=== PATIENT | male | born 1975 | race Caucasian/White ===

== ENCOUNTER 2018-04-08 14:27 | Emergency (ER) | payer BC ==
[2018-04-08 14:53] LABS: #Basophils 0.1 thou/uL (0.0-0.2); #Eosinphils 0.3 thou/uL (0.0-0.7); #Monocytes 1.6 thou/uL (0.11-0.59); #Neutrophils 14.2 thou/uL (1.40-6.50); %Basophils 0.4 % (0.0-1.0); %Eosinophils 1.3 % (0.0-10.0); %Lymphocytes 15.9 % (21.0-51.0); %Monocytes 8.3 % (0.0-10.0); %Neutrophils 74.1 % (42.0-75.0); Hemoglobin 17.7 g/dL (14.0-18.0); Mean Corpuscular HGB CONC 33.4 g/dL (32.0-36.0); Mean Corpuscular Volume 86.7 fL (78.0-98.0); Mean Platelet Volume 7.4 fL (7.4-10.4); Platelet Count 340 thou/uL (130-400); RBC Distribution Width 13.5 % (11.5-14.5); Red Blood Cell (RBC) Count 6.09 mill/uL (4.70-6.10); White Blood Cell (WBC) Count 19.1 thou/uL (4.8-10.8)
--- NOTE | 2018-04-08 15:01 | RAD ---
PA AND LATERAL CHEST: History: Syncope. Comparison: None. FINDINGS: There is mild cardiomegaly. Lungs are clear. There is focal eventration of the right hemidiaphragm. N o pleural effusion is evident. Surgical clips are seen within the right upper quadrant. No acute osse ous abnormality is noted. There is some physiologic wedging at T12. IMPRESSION: Mild cardiomegaly without evidence of cardiac decompensation. POS: [facility]
[2018-04-08 15:21] LABS: ALT (SGPT) 35 U/L (8-55); AST (SGOT) 29 U/L (5-34); Albumin 4.3 g/dL (3.5-5.0); Alkaline Phosphatase 110 U/L (40-150); Anion Gap 15 mmol/L (10-20); BUN (Urea Nitrogen) 7 mg/dL (8.9-20.6); Bilirubin, Total 0.7 mg/dL (0.2-1.2); CK (CPK) 316 U/L (30-200); Calc. Creatinine Clearance 0 mL/min (70-130); Calcium 8.8 mg/dL (7.8-10.44); Carbon Dioxide 24 mmol/L (22-29); Chloride 103 mmol/L (98-107); Estimated GFR-MDRD Greater than 90; Globulin 3.4 g/dL (2.4-3.5); Glucose 98 mg/dL (70-105); Potassium 3.7 mmol/L (3.5-5.1); Protein, Total 7.7 g/dL (6.0-8.3); Sodium 138 mmol/L (136-145)
[2018-04-08 15:22] LABS: CKMB 2.9 ng/mL (0-6.6); Troponin I Less than 0.010 ng/mL (< 0.028)
--- NOTE | 2018-04-08 16:00 | CT ---
CT BRAIN WITHOUT CONTRAST: Date: 04/08/18 HISTORY: Syncope. FINDINGS: No evidence of infarct, hemorrhage, midline shift, or abnormal extra-axial fluid collections are seen . The ventricular size is normal and the basilar cisterns are patent. The bony calvarium is intact. T he visualized paranasal sinuses and mastoid air cells are well aerated. There is a small scalp contus ion in the left posterior parietal region. IMPRESSION: No CT evidence of acute intracranial process. POS: [facility]
[2018-04-08] MEDS ORDERED: ISOVUE-370 76%-LOCM 1 ML ONE (16:47)
[2018-04-08 17:07] LABS: Acetaminophen Less than 6.0 mcg/mL (10.0-30.0); Alcohol Less than 10 mg/dL (Less than 10); Salicylate Less than 8.0 mg/dL (15.0-30.0)
--- NOTE | 2018-04-08 17:19 | CT ---
CT ANGIOGRAM CHEST WITH 3D RENDERIN04/08/18 HISTORY: 42-year-old male with history of syncopal episode. Elevated D-dimer. There is a 0.4 cm diameter subpleural nodule in the right mid lung zone. There is a small 0.3 cm diam eter circumscribed subpleural nodule in the left upper lobe. No convincing CT evidence for acute pulm onary embolism. The more distal branches are somewhat less than optimally imaged because of motion ar tifact and decreased bolus contrast density. Evidence for prior cholecystectomy. Fatty changes in the liver. No pleural effusion or pericardial effusion. No mediastinal mass or adenopathy. There is a 1.8 cm diameter nodule in the inferior left lobe of the thyroid with small calcific foci. IMPRESSION: No convincing CT evidence for acute pulmonary embolism. Less than 0.4 cm diameter bilateral subpleura l nodules, consider followup low dose CT screening scan in one year. 1.8 cm diameter left lower lobe thyroid nodule with several calcific foci. No evidence for other significant acute process. Code LN POS: [facility]
[2018-04-08] MEDS ORDERED: Acetaminophen 325 MG TAB ONE (17:32)
--- NOTE | 2018-04-09 07:17 | CT ---
CT CERVICAL SPINE WITH CORONAL AND SAGITTAL REFORMATIONS: 04/08/18 HISTORY: Trauma. Neck pain. FINDINGS/IMPRESSION: Mild degenerative changes are seen. There is loss of cervical lordosis. No acute fracture or subluxat ion is noted. No facet malalignment identified. POS: [facility]
== END 2018-04-08 17:44 | disposition home or self-care (01) ==
LOC: ERS 14:27
DX: R55 Syncope and collapse (principal); E11.9 Type 2 diabetes mellitus without complications; I10 Essential (primary) hypertension; E78.5 Hyperlipidemia, unspecified; F17.210 Nicotine dependence, cigarettes, uncomplicated; Z79.899 Other long term (current) drug therapy; Z71.6 Tobacco abuse counseling
CPT/HCPCS: 36415; 70450; 71046; 71275; 72125; 80053; 80307; 82140; 82553; 83690; 83880; 84146; 84443; 84484; 85025; 85379; 93005; 96360; 96361; 99406

== ENCOUNTER 2018-04-24 09:47 | Outpatient (CLI) | payer BC ==
--- NOTE | 2018-04-28 08:58 | EEG ---
Referring Physician: Jaimie LACEY EEG # [id number] TEST TYPE: ROUTINE OUTPATIENT REPORT: AN EEG USING THE INTERNATIONAL TEN-TWENTY SYSTEM OF ELECTRODE PLACEMENT WAS PERFORMED. The waking background is a 9 hertz alpha frequency. The patient became drowsy, but no sleep was seen. Hyperventilation and photic stimulation were unremarkable. No epileptiform features were present. IMPRESSION: THIS IS A NORMAL AWAKE AND DROWSY EEG. Oncology Account Specialist: LITZY Java Developer: EEG.JOLENE KINNEY
== END 2018-04-24 09:48 | disposition home or self-care (01) ==
LOC: EEG 09:47
PROVIDERS: ATTEND Family Medicine
DX: R55 Syncope and collapse (principal)
CPT/HCPCS: 95816

== ENCOUNTER 2018-04-30 16:59 | Observation (INO) | payer BC ==
[2018-04-30 18:15] LABS: #Basophils 0.1 thou/uL (0.0-0.2); #Eosinphils 0.3 thou/uL (0.0-0.7); #Monocytes 1.1 thou/uL (0.11-0.59); #Neutrophils 11.2 thou/uL (1.40-6.50); %Basophils 0.7 % (0.0-1.0); %Eosinophils 1.7 % (0.0-10.0); %Lymphocytes 19.1 % (21.0-51.0); %Monocytes 7.2 % (0.0-10.0); %Neutrophils 71.4 % (42.0-75.0); Hemoglobin 16.7 g/dL (14.0-18.0); Mean Corpuscular HGB CONC 33.1 g/dL (32.0-36.0); Mean Corpuscular Hemoglobin 28.6 pg (27.0-31.0); Mean Corpuscular Volume 86.3 fL (78.0-98.0); Mean Platelet Volume 7.3 fL (7.4-10.4); Platelet Count 282 thou/uL (130-400); RBC Distribution Width 13.5 % (11.5-14.5); Red Blood Cell (RBC) Count 5.85 mill/uL (4.70-6.10); White Blood Cell (WBC) Count 15.7 thou/uL (4.8-10.8)
[2018-04-30 18:35] LABS: ALT (SGPT) 25 U/L (8-55); AST (SGOT) 21 U/L (5-34); Albumin 3.8 g/dL (3.5-5.0); Alkaline Phosphatase 163 U/L (40-150); Anion Gap 14 mmol/L (10-20); BUN (Urea Nitrogen) 6 mg/dL (8.9-20.6); Bilirubin, Total 0.6 mg/dL (0.2-1.2); Calc. Creatinine Clearance 0 mL/min (70-130); Calcium 8.8 mg/dL (7.8-10.44); Carbon Dioxide 21 mmol/L (22-29); Chloride 103 mmol/L (98-107); Estimated GFR-MDRD Greater than 90; Globulin 3.3 g/dL (2.4-3.5); Glucose 103 mg/dL (70-105); Potassium 3.6 mmol/L (3.5-5.1); Protein, Total 7.1 g/dL (6.0-8.3); Sodium 134 mmol/L (136-145)
--- NOTE | 2018-04-30 18:36 | CT ---
CT BRAIN WITHOUT CONTRAST: 04/30/18 HISTORY: New onset seizure. COMPARISON: CT brain 04/08/18. FINDINGS: No acute hemorrhage or infarct. No midline shift or mass effect. Ventricular size and extra-axial CSF spaces are normal. The paranasal sinuses and mastoids are clear. Calvarium is intact. IMPRESSION: No acute intracranial abnormality. No significant change. POS: [facility]
[2018-04-30] MEDS ORDERED: levETIRAcetam In NaCl (Iso-Os) 1,000 MG in Premix Bag 1 BAG IVPB SCH (18:45)
[2018-04-30] MEDS ORDERED: Acetaminophen 325 MG TAB PO PRN ×2 (21:37→22:55)
[2018-04-30] MEDS ORDERED: Ketorolac Tromethamine 30 MG/ML VIAL ONE (21:55)
[2018-04-30] MEDS ORDERED: Ondansetron PF 4 MG/2 ML Vial IVP PRN (22:55)
[2018-04-30] MEDS ORDERED: Ondansetron ODT 4 MG TAB SL PRN (22:55)
[2018-05-01 00:16] VITALS: BMI 44.2
--- NOTE | 2018-05-01 04:18 | HP ---
CHIEF COMPLAINT: Possible seizure. HISTORY: This patient is a 42-year-old male, who presented via the emergency department. The patient reports that he had been diagnosed with diabetes mellitus about 4 months ago and has been started on Bydureon. States his blood sugars have actually been running pretty well overall. He is not aware of having any significant hypoglycemic events. The patient developed headaches about 1 month ago that seemed to be bitemporal and frontal in nature. These last 10 to 30 minutes and then tend to spontaneously resolve. The patient had an episode 3 weeks ago, which was 1 week after the onset of his headaches, where he had a syncopal episode. The patient was seen in the emergency department at that time. He was evaluated and released. He had a normal prolactin level at that time, although there was some concern about the possibility of a seizure. The patient subsequently had an outpatient EEG performed, which was unremarkable. Today, the patient presented back to the emergency department with another episode. The patient had been working this morning. He went to take shower, went into the bathroom, locked the door. Then, his father heard him yell. He went to check on the patient, but the door was locked. They finally were able to kick in the door and found the patient lying down on the ground. He was shaking and drooling, and his eyes were rolled back in his head. He was apparently out for about 10 minutes. He had some spontaneous recovery and was able to stand up and get to a bed and lie down 2 minutes before the paramedics arrived. The patient does not remember any of these events. He did not have loss of bowel or bladder function. He says his tongue is sore and his low back is sore (has a history of low back surgery) and he is little bit sore in his right leg, but otherwise feels like he is completely back to normal at this time. REVIEW OF SYSTEMS: All systems were reviewed and negative except for the positives and negatives noted in the history of present illness. Additional specifics, the patient has had no evidence of illness. No fevers or chills. PAST MEDICAL HISTORY: Notable for the diabetes mellitus type 2 diagnosed 4 months ago and started on the Bydureon. He also has hypertension and was recently started on losartan. 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 He reports he was getting Decadron and Rocephin shots for those in the past, but has not had any in about 8 months. Hyperlipidemia. The patient had traumatic injury to the back of his head, when he fell and caused a large laceration to his posterior scalp. The patient reports that he was hospitalized for 12 days related to that incident, but never had any loss of consciousness. SURGICAL HISTORY: Lumbar spine surgery and tonsillectomy. FAMILY HISTORY: Mother had TIAs and coronary artery disease. Father is healthy. SOCIAL HISTORY: The patient smokes half a pack of cigarettes per day. Denies any significant alcohol use or drugs. He is . He is full code. His surrogate decision maker would be his father or his . ALLERGIES: BACTRIM, WHICH APPARENTLY JUST CAUSES WORSENING OF THE DARIER DISEASE SKIN CONDITION. MEDICATIONS: 1. Atorvastatin 10 mg at bedtime. 2. Bydureon 2 mg subcu once a week. 3. Losartan-hydrochlorothiazide 100-12.5 one p.o. daily. PHYSICAL EXAMINATION: VITAL SIGNS: Blood pressure 105/60, pulse 71, respirations 18, and O2 saturation 96% on room air. GENERAL APPEARANCE: Morbidly obese, age-appropriate male. He is in no distress. He was asleep, but easily awaken and appropriate. HEENT: PERRL. No OP lesions. The patient has small oropharyngeal airway with large tongue. NECK: Extremely large and difficult to assess further. HEART: Regular rate and rhythm without murmurs, gallops, or rubs. LUNGS: Notable for very minimal scattered bilateral rales with fair air exchange. ABDOMEN: Obese, soft, nontender, and nondistended. Positive bowel sounds. No masses. No organomegaly. EXTREMITIES: No cyanosis, clubbing, or edema. There is slight tenderness to palpation in the right calf, but no visible contusions, lesions, or palpable cords or erythema. LABORATORY DATA: White count 15.7, hemoglobin 16.7, and platelets 282. Sodium 134, potassium 3.6, chloride 103, CO2 of 21, BUN 6, creatinine 0.79, glucose 107, calcium 8.8, AST 21, ALT 25, and alkaline phosphatase 163. Troponin 0.014. Albumin is 3.8 and prolactin is low at 3.18. CT brain is negative. EKG shows normal sinus rhythm at 70 beats per minute. IMPRESSION AND PLAN: 1. Syncopal episode. The patient has now had a second episode, where he has essentially lost consciousness. Today, he was noted to be shaking and drooling, and his eyes rolled back in his head, but it does not sound like there was clear evidence of true tonoclonic type activity. The patient had a normal EEG and has had negative prolactin levels x2. Certainly possible that the patient may be having some seizure. He does have a history of head injury when he was 17 years old, where he fell backwards and hit the back of his head causing significant gash. He reports he was in the hospital for 12 days related to that episode, but had no loss of consciousness at that time. The patient also has recently been started on 2 new medications, including the Bydureon for the diabetes and the losartan for blood pressure. It is possible that he could be having some reaction to these medications. He has some headaches, which started about a week before the first episode as well, which is a known side effect of the Bydureon. The patient has been loaded with Keppra in the emergency department. We will keep him overnight on telemetry, get an MRI of the brain and a Cardiology consult. We will also get an echocardiogram. 2. Diabetes mellitus concerning that his new medication maybe contributory to his current symptomatology. We will hold that. For now, we will just get Accu-Cheks and not give any sliding scale as hypoglycemia cannot completely be ruled out in this setting either. May need to institute some sliding scale, but I suspect in the long run, we would need to consider an alternative medication for his diabetes. 3. Hypertension. Continue with the losartan-hydrochlorothiazide. 4. Hyperlipidemia. Continue with the statin. Job ID: [id number]
[2018-05-01 09:05] LABS: #Basophils 0.1 thou/uL (0.0-0.2); #Eosinphils 0.3 thou/uL (0.0-0.7); #Monocytes 1.1 thou/uL (0.11-0.59); #Neutrophils 7.7 thou/uL (1.40-6.50); %Basophils 0.8 % (0.0-1.0); %Eosinophils 2.7 % (0.0-10.0); %Lymphocytes 24.8 % (21.0-51.0); %Monocytes 8.8 % (0.0-10.0); %Neutrophils 62.9 % (42.0-75.0); Hemoglobin 15.6 g/dL (14.0-18.0); Mean Corpuscular HGB CONC 33.1 g/dL (32.0-36.0); Mean Corpuscular Hemoglobin 28.4 pg (27.0-31.0); Mean Platelet Volume 7.3 fL (7.4-10.4); Platelet Count 260 thou/uL (130-400); RBC Distribution Width 13.4 % (11.5-14.5); White Blood Cell (WBC) Count 12.2 thou/uL (4.8-10.8)
[2018-05-01 09:29] LABS: ALT (SGPT) 25 U/L (8-55); AST (SGOT) 21 U/L (5-34); Albumin 3.8 g/dL (3.5-5.0); Alkaline Phosphatase 153 U/L (40-150); Anion Gap 12 mmol/L (10-20); BUN (Urea Nitrogen) 11 mg/dL (8.9-20.6); Bilirubin, Total 0.4 mg/dL (0.2-1.2); Calc. Creatinine Clearance 215 mL/min (70-130); Calcium 8.6 mg/dL (7.8-10.44); Carbon Dioxide 27 mmol/L (22-29); Chloride 103 mmol/L (98-107); Estimated GFR-MDRD 89; Globulin 3.1 g/dL (2.4-3.5); Glucose 130 mg/dL (70-105); Potassium 3.4 mmol/L (3.5-5.1); Protein, Total 6.9 g/dL (6.0-8.3); Sodium 139 mmol/L (136-145)
--- NOTE | 2018-05-01 11:54 | MRI ---
MRI BRAIN WITHOUT CONTRAST: HISTORY: New-onset seizure. FINDINGS: Correlation is made with the CT scan of the previous day. No restricted diffusion is seen. No infarct, hemorrhage, midline shift, or abnormal extraaxial fluid collections are noted. The ventricular size is normal and the basilar cisterns are patent. No sign al abnormalities are noted on the highly sensitive FLAIR images. A partially empty sella is seen. IMPRESSION: No acute process. POS: [facility]
--- NOTE | 2018-05-01 13:15 | PDOC.PN ---
- Subjective Encounter Start Date: 05/01/18 Encounter Start Time: 10:30 Subjective: denies any current neuro symptoms -: Reports acute on chronic low back pain from episode/fall yesterday -: Denies numb/tingling to LE, denies changes to bladder/bowel - Objective Resuscitation Status - Order Detail: 04/30/18 21:37 Resuscitation Status Routine Resuscitation Status: FULL: Full Resuscitation Discussed with: patient Vital Signs & Weight: Vital Signs (12 hours) Temp Pulse Resp BP Pulse Ox 05/01/18 11:47 98.0 F 62 16 137/91 H 96 05/01/18 08:00 98.1 F 69 16 116/63 96 05/01/18 04:00 98.0 F 72 16 134/80 95 Weight Weight 148.098 kg Result Diagrams: 05/01/18 08:58 05/01/18 08:58 Additional Labs: Accuchecks 05/01/18 05/01/18 10:48 06:00 POC Glucose 126 H 110 Phys Exam - Physical Examination HEENT: PERRLA, moist MMs Neck: no nodes Respiratory: no wheezing, clear to auscultation bilateral Cardiovascular: RRR, no significant murmur Gastrointestinal: soft, non-tender Musculoskeletal: no edema, pulses present tenderness to right lumbar paraspinal muscles, scars noted from previous sx Neurological: moves all 4 limbs Lymphatic: no nodes Psychiatric: normal affect, A&O x 3 Skin: normal turgor, cap refill <2 seconds Dx/Plan (1) Seizure Code(s): R56.9 - UNSPECIFIED CONVULSIONS Status: Acute (2) Diabetes Code(s): E11.9 - TYPE 2 DIABETES MELLITUS WITHOUT COMPLICATIONS Status: Acute (3) Hypertension Code(s): I10 - ESSENTIAL (PRIMARY) HYPERTENSION Status: Acute (4) Hyperlipidemia Code(s): E78.5 - HYPERLIPIDEMIA, UNSPECIFIED Status: Acute - Plan Brain MRI, Echo, Lumbar CT, Neuro consult -: Will continue to monitor vs/labs -: Will await neuro recommendations * .
--- NOTE | 2018-05-01 14:33 | CT ---
CT LUMBAR SPINE WITHOUT CONTRAST: Date: 05/01/18 HISTORY: Fall at home. Post-traumatic pain. Symptoms x3 weeks. COMPARISON: None. TECHNIQUE: Lumbar spine MRI is performed without intravenous Gadolinium administration. Multisequential, multipl sherif imaging is performed. FINDINGS: Symmetric attenuation of the psoas muscles and visualized solid organs. No retroperitoneal mass, lymphadenopathy, or hematoma. There are five lumbar-type vertebral bodies. Lumbar spine vertebral body height is maintained. There is no lumbar spine fracture. No spondylolisthesis. No spondylolysis. T11-T12: No significant central canal stenosis. Neural foramina are patent. T12-L1: No significant central canal stenosis. Foramina are patent. L1-L2: Generalized disc bulge with mild central canal stenosis. Patent neural foramina bilaterally. L2-L3: Generalized disc bulge with a central disc protrusion. Ligamentum flavum thickening and facet hypertrophy result in mild central canal stenosis. Mild bilateral foraminal narrowing. L3-L4: No significant loss of disc space height. Minimal central disc bulge. Minimal central canal s tenosis. Neural foramina are patent. L4-L5: Mild loss of disc space height. There appear to be posterior laminectomy defects. No high gra de central canal stenosis. Moderate to severe right and moderate left foraminal narrowing. L5-S1: No significant central canal stenosis. Foramina are patent. IMPRESSION: 1. Degenerative changes of the lumbar spine as above. 2. No evidence of lumbar spine fracture. POS: [facility]
[2018-05-01] MEDS: HYDROcodone/Acetaminophen 10/325 mg Tablet PO PRN (17:58)
--- NOTE | 2018-05-02 00:22 | CON ---
DATE OF CONSULTATION: 05/01/2018 TYPE OF CONSULTATION: Neurology. CONSULTING PHYSICIAN: Hospitalist service. IMPRESSION: Recurrent seizure without structural etiology. Possibly provoked by his heavy work schedule and lack of sleep. PLAN: 1. Keppra 500 mg twice a day. 2. Office followup. HISTORY OF PRESENT ILLNESS: Mr. Hanks is a 42-year-old man, who reports having recurrent seizure prior to admission. He apparently had one about two weeks ago. He was in the bathroom, yelling in incoherent manner, he does not recall doing this. When the door was opened by his father, they found him having a generalized tonic-clonic seizure. He has total amnesia of all the events. He reports that he works between 70 and 90 hours a week. He does not do any alcohol or drugs. His lab work was unremarkable on admission. His MRI of the brain is normal. He has no focal complaints. There is no other significant past history. ALLERGIES: SULFA. MEDICATIONS: 1. Atorvastatin. 2. Losartan. FAMILY HISTORY: Noncontributory. SOCIAL HISTORY: Unremarkable. REVIEW OF SYSTEMS: No complaints of lateralized weakness or numbness. PHYSICAL EXAMINATION: GENERAL: He is an overweight, middle-aged man, in no acute distress. VITAL SIGNS: Blood pressure 110/65, pulse 66, respirations 16, temperature 98.3. HEENT: Unremarkable. NECK: Supple. EXTREMITIES: No cyanosis. NEUROLOGIC: Alert and appropriate. His exam is nonfocal. No abnormal movements were seen. SUMMARY: Given the recurrent nature of his events, I will go ahead and start him on an anticonvulsant and follow up with him in the office. Job ID: [id number]
[2018-05-02] MEDS: HYDROcodone/Acetaminophen 10/325 mg Tablet PO PRN ×2 (02:22→11:01)
[2018-05-02 05:34] LABS: #Basophils 0.1 thou/uL (0.0-0.2); #Eosinphils 0.3 thou/uL (0.0-0.7); #Lymphocytes 3.4 thou/uL (1.20-3.40); #Neutrophils 7.6 thou/uL (1.40-6.50); %Basophils 0.8 % (0.0-1.0); %Eosinophils 2.7 % (0.0-10.0); %Lymphocytes 27.2 % (21.0-51.0); %Monocytes 8.2 % (0.0-10.0); %Neutrophils 61.1 % (42.0-75.0); Hemoglobin 15.4 g/dL (14.0-18.0); Mean Corpuscular HGB CONC 33.9 g/dL (32.0-36.0); Mean Corpuscular Hemoglobin 29.3 pg (27.0-31.0); Mean Corpuscular Volume 86.3 fL (78.0-98.0); Mean Platelet Volume 7.4 fL (7.4-10.4); Platelet Count 260 thou/uL (130-400); RBC Distribution Width 13.3 % (11.5-14.5); Red Blood Cell (RBC) Count 5.25 mill/uL (4.70-6.10); White Blood Cell (WBC) Count 12.5 thou/uL (4.8-10.8)
[2018-05-02 05:37] LABS: ALT (SGPT) 24 U/L (8-55); AST (SGOT) 23 U/L (5-34); Albumin 3.7 g/dL (3.5-5.0); Alkaline Phosphatase 136 U/L (40-150); Anion Gap 12 mmol/L (10-20); BUN (Urea Nitrogen) 11 mg/dL (8.9-20.6); Bilirubin, Total 0.4 mg/dL (0.2-1.2); Calc. Creatinine Clearance 235 mL/min (70-130); Calcium 8.4 mg/dL (7.8-10.44); Carbon Dioxide 25 mmol/L (22-29); Chloride 106 mmol/L (98-107); Estimated GFR-MDRD Greater than 90; Glucose 105 mg/dL (70-105); Potassium 3.4 mmol/L (3.5-5.1); Protein, Total 6.7 g/dL (6.0-8.3); Sodium 140 mmol/L (136-145)
[2018-05-02 07:47] VITALS: BP 125/69; TEMP 98
[2018-05-02] MEDS ORDERED: levETIRAcetam 500 MG TAB PO SCH (09:00)
--- NOTE | 2018-05-03 03:47 | DIS ---
DATE OF ADMISSION: 04/30/2018 DATE OF DISCHARGE: 05/02/2018 PRIMARY CARE PHYSICIAN: Dr. Mckeon. CONSULTANTS: Dr. aWre. PROCEDURES: 1. Brain CT showed no acute intracranial abnormality, no significant change. 2. Brain MRI, no acute process. 3. Lumbar spine CT. a. Degenerative changes to lumbar spine. b. No evidence of lumbar spine fracture. 4. Echocardiogram, ejection fraction is visually estimated at 50-55%. Left atrium is mildly dilated. Mild mitral regurgitation. Trace tricuspid regurgitation. HOSPITAL COURSE: Mr. Hanks is a 42-year-old male who presented to the emergency room on 04/30/2018 for a syncopal episode, possible seizure, headaches. The patient had been started on Bydureon about 4 months ago and since that time he has been having headaches and syncopal episodes. He had one 3 weeks ago and on day of admission. The patient reports he was working on the morning of admission, went to take a shower, went to the bathroom, locked the door. Father heard him yell, went to go check on him and the bathroom door was locked. Family was finally able to kick the door down and found the patient lying down on the ground. He was shaking and drooling and his eyes had rolled back in his head. Apparently out for about 10 minutes. Some spontaneous recovery and eventually was able to stand up and get to bed when he lay down 2 minutes before the Paramedics arrived. The patient does not remember any of these events. He did not have any loss of bowel or bladder function. Reports an exacerbation of his low back pain. Denies any loss of function. Based on symptoms, presentation, the patient was admitted to the observation unit for seizure activity. The patient had a brain CT and MRI, which were both negative. We asked Dr. Ware to consult. His impression was a recurrent seizure without structural etiology, possibly provoked by heavy work schedule and lack of sleep. His plan was to put him on Keppra 500 mg twice a day and would like to see him in the office as an outpatient. The patient denied any further seizure activity when he was hospitalized; did report some continued exacerbation of his low back pain. We performed a CT scan of his lumbar spine, which was negative for acute process. White blood cell count was initially 15.7 and on the day of discharge, it dropped to 12.5. Vital signs and laboratory results remained stable. The patient is requesting to go home. Case discussed with Dr. Ware, who agreed with plan and he was sent home to follow up with Dr. Ware and Dr. Mckeon on an outpatient basis. We started Keppra and restarted his home medications. We did discontinue the Bydureon and added metformin. DISCHARGE DIAGNOSES: 1. Recurrent seizures, etiology unknown. 2. Diabetes type 2. 3. Acute on chronic low back pain. ALLERGIES: THE PATIENT IS ALLERGIC TO SULFA, BACTRIM DS. MEDICATIONS: 1. The patient will be restarted on Lipitor 10 mg p.o. daily. 2. Losartan/hydrochlorothiazide 100/12.5 one tab p.o. daily. 3. He will discontinue the Bydureon. 4. Added Flexeril 5-10 mg p.o. t.i.d. as needed. 5. Motrin 800 mg p.o. q.8 hours. 6. Keppra 500 mg p.o. b.i.d. 7. Metformin 500 mg p.o. b.i.d. We would like him to follow up with Dr. Mckeon and she can adjust his diabetic medication at her discretion. DISCHARGE CONDITION: Stable. DISPOSITION: The patient discharged home. REFERRALS: The patient should follow up with Dr. Mckeon within the next week. Follow up with Dr. Ware at his first available appointment. Job ID: [id number]
--- NOTE | 2018-05-09 17:19 | EKG ---
Test Reason : Blood Pressure : / mmHG Vent. Rate : 070 BPM Atrial Rate : 070 BPM P-R Int : 160 ms QRS Dur : 106 ms QT Int : 438 ms P-R-T Axes : 008 007 037 degrees QTc Int : 473 ms Normal sinus rhythm Normal ECG Confirmed by CHARLIE PEDROZA ([id number]), editorial clerk FELICIA JOE ([id number]) on 05/09/2018 5:19:02 PM Referred By: Confirmed By:CHARLIE PEDROZA
== END 2018-05-02 11:58 | disposition home or self-care (01) ==
LOC: ERS 16:59 → 2SE 19:00
PROVIDERS: ADMIT Family Medicine; ATTEND Family Medicine
DX: R56.9 Unspecified convulsions (principal); R55 Syncope and collapse; Q82.8 Other specified congenital malformations of skin; E11.9 Type 2 diabetes mellitus without complications; I10 Essential (primary) hypertension; E78.5 Hyperlipidemia, unspecified; F17.210 Nicotine dependence, cigarettes, uncomplicated; G89.29 Other chronic pain; M54.5 Low back pain; G89.11 Acute pain due to trauma; M48.061 Spinal stenosis, lumbar region without neurogenic claudication; E66.01 Morbid (severe) obesity due to excess calories; Z68.41 Body mass index [BMI] 40.0-44.9, adult; Z79.84 Long term (current) use of oral hypoglycemic drugs; Z88.2 Allergy status to sulfonamides; Z79.899 Other long term (current) drug therapy
CPT/HCPCS: 36415; 36416; 70450; 70551; 72131; 80053; 84146; 84484; 85025; 90471; 90732; 93005; 93306; 96365; 96375; G0009; G0378; J1885; J1953

== ENCOUNTER 2018-06-26 14:31 | Emergency (ER) | payer BC ==
[2018-06-26 16:25] LABS: #Basophils 0.1 thou/uL (0.0-0.2); #Eosinphils 0.3 thou/uL (0.0-0.7); #Lymphocytes 2.6 thou/uL (1.20-3.40); #Neutrophils 11.5 thou/uL (1.40-6.50); %Basophils 0.8 % (0.0-1.0); %Eosinophils 1.8 % (0.0-10.0); %Lymphocytes 16.9 % (21.0-51.0); %Monocytes 6.4 % (0.0-10.0); %Neutrophils 74.1 % (42.0-75.0); Hemoglobin 16.1 g/dL (14.0-18.0); Mean Corpuscular HGB CONC 33.7 g/dL (32.0-36.0); Mean Corpuscular Hemoglobin 29.8 pg (27.0-31.0); Mean Corpuscular Volume 88.3 fL (78.0-98.0); Mean Platelet Volume 7.2 fL (7.4-10.4); Platelet Count 300 thou/uL (130-400); RBC Distribution Width 13.5 % (11.5-14.5); White Blood Cell (WBC) Count 15.5 thou/uL (4.8-10.8)
[2018-06-26 16:46] LABS: ALT (SGPT) 25 U/L (8-55); AST (SGOT) 18 U/L (5-34); Albumin 4.1 g/dL (3.5-5.0); Alkaline Phosphatase 104 U/L (40-150); Anion Gap 13 mmol/L (10-20); BUN (Urea Nitrogen) 8 mg/dL (8.9-20.6); Bilirubin, Total 0.6 mg/dL (0.2-1.2); Calc. Creatinine Clearance 0 mL/min (70-130); Calcium 8.8 mg/dL (7.8-10.44); Carbon Dioxide 25 mmol/L (22-29); Chloride 104 mmol/L (98-107); Estimated GFR-MDRD Greater than 90; Globulin 2.9 g/dL (2.4-3.5); Glucose 113 mg/dL (70-105); Potassium 3.7 mmol/L (3.5-5.1); Sodium 138 mmol/L (136-145)
--- NOTE | 2018-06-26 16:53 | CT ---
NONCONTRAST CT HEAD: 06/26/18 HISTORY: Dizziness post seizure. Patient does have history of seizures. COMPARISON: 04/30/18. FINDINGS: There is no evidence of a hemorrhage, acute infarction, mass effect or midline shift. Ventricular sys tem is normal in size, shape and position. No calvarial fracture is seen. The visualized paranasal si nuses and mastoid air cells are clear. There is area of soft tissue prominence in the left posterolat eral parietal region and posterior parietal region of the vertex which was also seen on the prior caro dy and could be related to areas of scarring as opposed to areas of soft tissue swelling. These find ings were also seen on study of 04/08/18. IMPRESSION: No acute intracranial abnormality demonstrated. POS: [facility]
== END 2018-06-26 18:06 | disposition home or self-care (01) ==
LOC: ERS 14:31
DX: R56.9 Unspecified convulsions (principal); E11.9 Type 2 diabetes mellitus without complications; E78.5 Hyperlipidemia, unspecified; I10 Essential (primary) hypertension; F17.210 Nicotine dependence, cigarettes, uncomplicated; Z79.899 Other long term (current) drug therapy; Z79.84 Long term (current) use of oral hypoglycemic drugs
CPT/HCPCS: 36415; 70450; 80053; 80177; 85025

== ENCOUNTER 2018-08-04 20:30 | Outpatient (CLI) | payer BC | END 2018-08-04 20:31 | disposition home or self-care (01) | LOC: SLEEPLAB 20:30 | PROVIDERS: ATTEND Family Medicine | DX: G47.33 Obstructive sleep apnea (adult) (pediatric) (principal); R53.83 Other fatigue; I10 Essential (primary) hypertension; E11.9 Type 2 diabetes mellitus without complications; E66.9 Obesity, unspecified; R56.9 Unspecified convulsions; Z68.42 Body mass index [BMI] 45.0-49.9, adult | CPT/HCPCS: 95810 ==

== ENCOUNTER 2018-08-19 20:30 | Outpatient (CLI) | payer BC | END 2018-08-19 20:31 | disposition home or self-care (01) | LOC: SLEEPLAB 20:30 | PROVIDERS: ATTEND Family Medicine | DX: G47.33 Obstructive sleep apnea (adult) (pediatric) (principal); R53.83 Other fatigue; E66.9 Obesity, unspecified; I10 Essential (primary) hypertension; E11.9 Type 2 diabetes mellitus without complications; R56.9 Unspecified convulsions | CPT/HCPCS: 95811 ==

== ENCOUNTER 2018-12-14 08:31 | Emergency (ER) | payer BC ==
[2018-12-14] MEDS ORDERED: Ibuprofen 800 MG TAB ONE (09:26)
[2018-12-14 09:43] LABS: #Basophils 0.1 thou/uL (0.0-0.2); #Eosinphils 0.3 thou/uL (0.0-0.7); #Lymphocytes 2.5 thou/uL (1.20-3.40); #Monocytes 0.8 thou/uL (0.11-0.59); #Neutrophils 7.9 thou/uL (1.40-6.50); %Basophils 0.8 % (0.0-1.0); %Eosinophils 2.5 % (0.0-10.0); %Lymphocytes 21.7 % (21.0-51.0); %Monocytes 7.2 % (0.0-10.0); %Neutrophils 67.9 % (42.0-75.0); Hemoglobin 15.7 g/dL (14.0-18.0); Mean Corpuscular HGB CONC 33.1 g/dL (32.0-36.0); Mean Corpuscular Hemoglobin 28.8 pg (27.0-31.0); Mean Platelet Volume 7.5 fL (7.4-10.4); Platelet Count 280 thou/uL (130-400); RBC Distribution Width 13.2 % (11.5-14.5); Red Blood Cell (RBC) Count 5.44 mill/uL (4.70-6.10); White Blood Cell (WBC) Count 11.6 thou/uL (4.8-10.8)
[2018-12-14 09:47] LABS: ALT (SGPT) 21 U/L (8-55); AST (SGOT) 17 U/L (5-34); Albumin 3.9 g/dL (3.5-5.0); Alkaline Phosphatase 89 U/L (40-150); Anion Gap 12 mmol/L (10-20); BUN (Urea Nitrogen) 7 mg/dL (8.9-20.6); Bilirubin, Total 0.6 mg/dL (0.2-1.2); Calc. Creatinine Clearance 0 mL/min (70-130); Calcium 8.9 mg/dL (7.8-10.44); Carbon Dioxide 27 mmol/L (22-29); Chloride 103 mmol/L (98-107); Estimated GFR-MDRD Greater than 90; Globulin 2.9 g/dL (2.4-3.5); Glucose 120 mg/dL (70-105); Potassium 3.6 mmol/L (3.5-5.1); Protein, Total 6.8 g/dL (6.0-8.3); Sodium 138 mmol/L (136-145)
== END 2018-12-14 11:57 | disposition home or self-care (01) ==
LOC: ERS 08:31
DX: G40.909 Epilepsy, unspecified, not intractable, without status epilepticus (principal); E11.9 Type 2 diabetes mellitus without complications; E78.5 Hyperlipidemia, unspecified; I10 Essential (primary) hypertension; F17.210 Nicotine dependence, cigarettes, uncomplicated; Z79.84 Long term (current) use of oral hypoglycemic drugs; Z79.899 Other long term (current) drug therapy
CPT/HCPCS: 36415; 80053; 80177; 84146; 85025; 99284